=== PATIENT | female | born 2000 | race Caucasian/White ===

== ENCOUNTER 2023-06-22 11:05 | Emergency (ER) | payer OTHER ==
[~2023-06-22] VITALS: Ht 165.1 cm; Wt 107.0 kg
[2023-06-22 11:05] VITALS: BP 148/95; PULSE 121; RESP 20; TEMP 97.9; O2SAT 99
[2023-06-22] MEDS ORDERED: NS 1000ML 1,000 ML IV ONE (11:30)
[2023-06-22 11:36] LABS: BASOPHIL % 0.3 % (0.0-0.2); EOSINOPHIL # 0.2 10^3/uL (0.0-0.2); EOSINOPHIL % 1.7 % (0.0-5.0); HEMATOCRIT(ML) 46.2 % (36.0-46.0); HEMOGLOBIN 15.7 g/dL (12.0-15.0); LYMPHOCYTES % 13.8 % (24.0-44.0); MEAN CORP HGB 32.6 pg (26-34); MONOCYTES # 1.1 10^3/uL (0.3-0.8); MONOCYTES % 8.2 % (5.0-12.0); NEUTROPHIL # 10.4 10^3/uL (1.8-7.7); NEUTROPHILS % 75.9 % (41.0-85.0); PLATELET COUNT 356 10^3/uL (150-400); RED BLOOD CELL 4.81 10^6/uL (4.00-5.20); RED CELL DISTRIBUTION WIDTH 12.1 % (11.5-14.5); WHITE BLOOD CELL 13.7 10^3/uL (4.5-11.0)
[2023-06-22] MEDS ORDERED: NS 1000ML 1,000 ML ONE (11:39)
[2023-06-22 11:41] LABS: BILIRUBIN,URINE NEGATIVE (NEGATIVE); LEUKOCYTE ESTERASE ,URINE 1+ (NEGATIVE); NITRATE,URINE NEGATIVE (NEGATIVE); PH,URINE 6.5 (4.5-8.0)
[2023-06-22 11:51] LABS: INR 1.1; PROTHROMBIN PROTIME 11.1 SEC (9.7-11.6)
[2023-06-22 11:54] LABS: ALBUMIN(ML) 3.4 g/dL (3.4-5.0); ALBUMIN/GLOBULIN RATIO 0.68; ANION GAP 11.8; CALCIUM 9.5 mg/dL (8.4-10.5); CARBON DIOXIDE 26.8 mmol/L (20.0-32); CREATININE SERUM 0.8 mg/dL (0.59-1.40); EST GFR, NON-AA 90.5 (>/=60); POTASSIUM 3.6 mmol/L (3.6-5.2)
[2023-06-22 11:56] LABS: +ADD MANUAL DIFF(NO CHRG) NO
[2023-06-22 11:58] LABS: UAMPH METHAMP(SCRN) NEGATIVE (co1000ng/mL); UR MDMA (ECSTASY) SCRN NEGATIVE (c/o300ng/mL); UR METHADONE SCRN NEGATIVE (c/o300ng/mL); UR OPIATE SCRN NEGATIVE (c/o300ng/mL); UR PHENCYCLIDINE (PCP) SCRN NEGATIVE (c/o 25ng/mL); UR TETRAHYDROCANNABINOL SCRN NEGATIVE (c/o 50ng/mL)
[2023-06-22 11:59] LABS: APPEARANCE,URINE CLOUDY; UA COLOR YELLOW
[2023-06-22 12:36] VITALS: BP 117/67; PULSE 88; RESP 20; TEMP 97.9; O2SAT 99
[2023-06-22 13:49] VITALS: BP 117/67; PULSE 99; RESP 20; TEMP 97.9; O2SAT 99
[2023-06-22] MEDS ORDERED: MEDR10TA3 PO (14:00)
[2023-06-22] MEDS ORDERED: [UNRECOGNIZED DRUG - MIXTURE] SQ (14:00)
[2023-06-22 15:23] VITALS: BP 132/67; PULSE 98; RESP 20; TEMP 97.9; O2SAT 99
== END 2023-06-22 15:27 | disposition home or self-care (01) ==
LOC: ER 11:05
DX: K80.20 Calculus of gallbladder without cholecystitis without obstruction (principal)
CPT/HCPCS: 99284; 96360; 76705; 96361; 87086; 80053; 85025; 86677; 36415; 80307; 82150; 83690; 85610; 85730; 84703; 81001; J7030

== ENCOUNTER 2023-07-26 07:48 | Day surgery (SDC) | payer OTHER ==
[2023-07-23 10:15] VITALS: BP 131/72; PULSE 110; RESP 18; TEMP 97.9; O2SAT 97
[2023-07-23 10:28] LABS: BASOPHIL % 0.5 % (0.0-0.2); EOSINOPHIL # 0.1 10^3/uL (0.0-0.2); EOSINOPHIL % 1.5 % (0.0-5.0); HEMATOCRIT(ML) 45.6 % (36.0-46.0); HEMOGLOBIN 15.2 g/dL (12.0-15.0); LYMPHOCYTES # 1.79 10^3/uL1 (1.0-4.8); LYMPHOCYTES % 22.7 % (24.0-44.0); MEAN CORP HGB 32.2 pg (26-34); MEAN CORP HGB CONCENTRATION 33.3 g/dL (33-36.5); MEAN CORP VOLUME 96.6 fL (78-100); MONOCYTES # 0.6 10^3/uL (0.3-0.8); MONOCYTES % 7.4 % (5.0-12.0); NEUTROPHIL # 5.3 10^3/uL (1.8-7.7); NEUTROPHILS % 67.6 % (41.0-85.0); PLATELET COUNT 365 10^3/uL (150-400); RED BLOOD CELL 4.72 10^6/uL (4.00-5.20); RED CELL DISTRIBUTION WIDTH 12.1 % (11.5-14.5); WHITE BLOOD CELL 7.9 10^3/uL (4.5-11.0)
[2023-07-23 10:32] LABS: +ADD MANUAL DIFF(NO CHRG) NO
[2023-07-23 10:45] LABS: PROTHROMBIN PROTIME 10.4 SEC (9.7-11.6)
[2023-07-23 10:47] LABS: ALBUMIN(ML) 3.5 g/dL (3.4-5.0); ALBUMIN/GLOBULIN RATIO 0.777; ANION GAP 13.2; BUN/CREATININE RATIO 14.66 (10.0-20.0); CALCIUM 9.1 mg/dL (8.4-10.5); CARBON DIOXIDE 25.7 mmol/L (20.0-32); CREATININE SERUM 0.75 mg/dL (0.59-1.40); EST GFR, NON-AA 97.5 (>/=60); POTASSIUM 3.9 mmol/L (3.6-5.2)
[2023-07-26] VITALS (15 sets, daily range): BP systolic 112–149; BP diastolic 61–86; PULSE 78–107; RESP 16; TEMP 98.1–98.9; O2SAT 96–99
[~2023-07-26] VITALS: Ht 165.1 cm; Wt 99.8 kg
[~2023-07-26 07:48] MED LIST: BRIDION IV ONE; DECADRON ONE; DILAUDID ONE; DIPRIVAN IV ONE; ISOTON GENTAMICIN 80 MG/100 ML 100 ML IV ONE; LACTATED RINGERS 1,000 ML ONE; LOVENOX SQ ONE; MEDR10TA3 PO; MEFOXIN ONE; NS 100ML 100 ML IV ONE; NS 3000ML IRR IR ONE; OFIRMEV 1000 MG/100 ML 100 ML IV ONE; PEPCID IV ONE; QUELICIN ONE; SENSORCAINE-MPF 0.25% VIAL ONE; SODIUM CHLORIDE IRR BOTTLE IR ONE; SUBLIMAZE 100MCG/2ML ONE; TORADOL ONE; VERSED ONE; ZOFRAN ONE; ZYNRELEF 200-6 MG/7 ML VIAL IL ONE; [UNRECOGNIZED DRUG - CODE] PO; [UNRECOGNIZED DRUG - MIXTURE] SQ
[2023-07-26] MEDS: LOVENOX SQ ONE (08:01)
[2023-07-26] MEDS ORDERED: MULT-419 PO (08:10)
[2023-07-26] MEDS ORDERED: [UNRECOGNIZED DRUG - CODE] PO (08:10)
[2023-07-26] MEDS: LACTATED RINGERS 1,000 ML IV SCH (08:10)
[2023-07-26] MEDS: PEPCID IV ONE (09:08)
[2023-07-26] MEDS: MEFOXIN 2 GM in NS 100ML 100 ML IV ONE (09:57)
[2023-07-26] MEDS ORDERED: DILAUDID ONE (11:59)
[2023-07-26] MEDS: DILAUDID IV ONE (12:02)
== END 2023-07-26 13:28 | disposition home or self-care (01) ==
LOC: SDC 07:48
PROVIDERS: ATTEND Surgery
DX: K80.10 Calculus of gallbladder with chronic cholecystitis without obstruction (principal); K82.8 Other specified diseases of gallbladder; E28.2 Polycystic ovarian syndrome; E66.9 Obesity, unspecified; Z79.899 Other long term (current) drug therapy; Z79.01 Long term (current) use of anticoagulants; Z82.49 Family history of ischemic heart disease and other diseases of the circulatory system; Z83.3 Family history of diabetes mellitus; Z83.42 Family history of familial hypercholesterolemia; Z68.41 Body mass index [BMI] 40.0-44.9, adult
CPT/HCPCS: 80053; 85025; 36415; 85610; 85730; 47562; 88304; 81025; J1580; J7120 ×2; A4550; J1100; J0694 ×2; A4217; J1170 ×2; J0131; J3490 ×3; J2704; J1650; J2405; J2250; J1885; J3010; J0330